=== PATIENT | female | born 1965 | race African-American/Black ===

== ENCOUNTER 2018-06-15 19:26 | Emergency (ER) | payer MEDICARE, MEDICAID ==
[2018-06-15] MEDS ORDERED: ASPIRIN 81 MG TABLET, CHEWABLE PO ONE (19:53)
--- NOTE | 2018-06-15 19:55 | ER Document Report ---
ED Medical Screen (RME) - General TRAVEL OUTSIDE OF THE [place] IN LAST 30 DAYS: No <ROMAN PEARCE - Last Filed: 06/15/18 19:54> <FIORELLA MORGAN - Last Filed: 06/16/18 01:56> - General Chief Complaint: High Blood Pressure Stated Complaint: BLOOD PRESSURE PROBLEM Time Seen by Provider: 06/15/18 19:49 Notes: 53 years old female with no previous history of hypertension, was having substernal chest pain, seen at an urgent care, blood pressure was reading around 190 systole. Therefore she was referred to the ED. By the time she came to the ED the pain has subsided. Pressure remains elevated. She denies any left arm numbness tingling sensation nausea vomiting palpitation or diaphoresis. She is pretty up diabetic but not taking any medications. She is a smoker. Denies any alcohol or drug abuse. (ROMAN PEAREC) - Related Data Allergies/Adverse Reactions: No Known Allergies Allergy (Unverified 12/12/12 19:31) Past Medical History - Past Medical History Cardiac Medical History: Denies: Hx Hypertension - denies hx of diagnosis of HTN --denies htn meds Pulmonary Medical History: Denies: Hx Tuberculosis Past Surgical History: Reports: Hx Section, Hx Cholecystectomy. Denies : Hx Pacemaker - Immunizations Hx Diphtheria, Pertussis, Tetanus Vaccination: Yes <ROMAN PEARCE - Last Filed: 06/15/18 19:54> - Vital signs Vitals: Temp Pulse Resp BP Pulse Ox 98.1 F 86 14 157/105 H 94 06/15/18 19:38 06/15/18 19:38 06/15/18 19:38 06/15/18 19:38 06/15/18 19:38 Course - Laboratory Result Diagrams: 06/15/18 20:33 06/15/18 20:33 <FIORELLA MORGAN - Last Filed: 06/16/18 01:56> - Vital Signs Vital signs: Temp Pulse Resp BP Pulse Ox 98.1 F 86 14 157/105 H 94 06/15/18 19:38 06/15/18 19:38 06/15/18 19:38 06/15/18 19:38 06/15/18 19:38 - Laboratory Laboratory results interpreted by me: 07/25/18 07/25/18 20:33 20:33 WBC 13.8 H RBC 5.48 H Hgb 16.3 H Hct 48.1 H Absolute Lymphocytes 5.3 H Potassium 3.5 L Glucose 149 H Doctor's Discharge <ROMAN PEARCE - Last Filed: 06/15/18 19:54> <FIORELLA MORGAN - Last Filed: 06/16/18 01:56> - Discharge Clinical Impression: Chest pain Qualifiers: Chest pain type: unspecified Qualified Code(s): R07.9 - Chest pain, unspecified Condition: Stable Disposition: HOME, SELF-CARE Additional Instructions: Chest Pain of Unclear Cause The exact cause of your chest pain isn't clear. Fortunately, there is no evidence of a dangerous medical condition. Further testing may be required to find the source of the pain. Most often, we find that this pain is coming from the chest wall -- the muscles or rib joints in the chest. But chest pain can come from the lung and lung lining, the esophagus, the heart valves or heart lining, and even the stomach or gallbladder. Rest. Eat lightly until the pain is gone. We may prescribe medicine for pain and inflammation. You should call the physician immediately if the pain radiates to the shoulder, jaw or arms; if you start to run a fever or develop a cough; or if you develop shortness of breath, or other new or alarming symptoms. Your cardiac workup today was normal. Please call Dr. Mccullough's office in the morning, to make an appointment for evaluation. You may need to have a stress test. Please return to the emergency department if you develop worsening symptoms we will be happy to reevaluate you. Referrals: MARLA SINGLETON MD [Primary Care Provider] - Follow up as needed
--- NOTE | 2018-06-15 20:34 | RADIOLOGY REPORT (SQ) ---
EXAM DESCRIPTION: CHEST SINGLE VIEW COMPLETED DATE/TIME: 06/15/2018 8:14 pm REASON FOR STUDY: Chest pain COMPARISON: None. EXAM PARAMETERS: NUMBER OF VIEWS: One view. TECHNIQUE: Single frontal radiographic view of the chest acquired. RADIATION DOSE: NA LIMITATIONS: None. FINDINGS: LUNGS AND PLEURA: No opacities, masses or pneumothorax. No pleural effusion. MEDIASTINUM AND HILAR STRUCTURES: No masses. Contour normal. HEART AND VASCULAR STRUCTURES: Heart normal in size. Normal vasculature. BONES: No acute findings. HARDWARE: None in the chest. OTHER: No other significant finding. IMPRESSION: NO ACUTE RADIOGRAPHIC FINDING IN THE CHEST. TECHNICAL DOCUMENTATION: JOB ID: [id number] [employer]- All Rights Reserved Reading location - IP/workstation name: [email or web address]
[2018-06-15 21:15] LABS: ABSOLUTE BASOPHILS # (AUTO) 0.1 10^3/uL (0.0-0.2); ABSOLUTE EOSINOPHILS # (AUTO) 0.4 10^3/uL (0.0-0.6); ABSOLUTE LYMPHOCYTES (AUTO) 5.3 10^3/uL (0.5-4.7); ABSOLUTE MONOCYTES (AUTO) 0.6 10^3/uL (0.1-1.4); ABSOLUTE NEUT (AUTO) 7.4 10^3/uL (1.7-8.2); BASOPHILS % (AUTO) 0.9 % (0-2); EOSINOPHILS % (AUTO) 3.2 % (0-6); HEMATOCRIT 48.1 % (36.0-47.0); HEMOGLOBIN 16.3 g/dL (12.0-15.5); LYMPHOCYTES % (AUTO) 38.5 % (13-45); MEAN CORPUSCULAR HEMOGLOBIN 29.8 pg (27.0-33.4); MEAN CORPUSCULAR VOLUME 88 fl (80-97); PLATELET COUNT 243 10^3/uL (150-450); RED BLOOD COUNT 5.48 10^6/uL (3.72-5.28); RED CELL DISTRIBUTION WIDTH 13.4 % (11.5-14.0); SEGMENTED NEUTROPHILS % (AUTO) 53.4 % (42-78); TOTAL CELLS COUNTED % (AUTO) 100 %; WHITE BLOOD COUNT 13.8 10^3/uL (4.0-10.5)
[2018-06-15 21:35] LABS: ALANINE AMINOTRANSFERASE 34 U/L (9-52); ALBUMIN 3.9 g/dL (3.5-5.0); ALKALINE PHOSPHATASE 89 U/L (38-126); ANION GAP 9 (5-19); ASPARTATE AMINO TRANSFERASE 30 U/L (14-36); BILIRUBIN,DIRECT 0.3 mg/dL (0.0-0.4); BILIRUBIN,TOTAL 0.4 mg/dL (0.2-1.3); BLOOD UREA NITROGEN 15 mg/dL (7-20); CALCIUM 8.6 mg/dL (8.4-10.2); CARBON DIOXIDE 24 mmol/L (22-30); CHLORIDE 106 mmol/L (98-107); CREATINE KINASE 108 U/L (30-135); GLUCOSE 149 mg/dL (75-110); POTASSIUM 3.5 mmol/L (3.6-5.0); SODIUM 139.1 mmol/L (137-145); TOTAL PROTEIN 7.9 g/dL (6.3-8.2)
[2018-06-15 21:43] LABS: CREATINE KINASE MB 1.01 ng/mL (<4.55)
[2018-06-15 21:44] LABS: TROPONIN I < 0.012 ng/mL
[2018-06-15] MEDS ORDERED: LIDOCAINE 2% VISCOUS SOLN 20 ML UDCUP PO ONE (23:02)
[2018-06-15] MEDS ORDERED: METOCLOPRAMIDE HCL ORAL SOLN 10 MG/10 ML UDCUP PO ONE (23:03)
[2018-06-15] MEDS ORDERED: MAG HYDROX/AL HYDROX/SIMETH SUSP 30 ML UDCUP PO ONE (23:03)
--- NOTE | 2018-06-15 23:05 | EKG REPORT ---
SEVERITY:- ABNORMAL ECG - SINUS RHYTHM LEFT VENTRICULAR HYPERTROPHY BORDERLINE PROLONGED QT INTERVAL : Confirmed by: Rafaela Tanner MD 15-Jun-2018 23:04:47
[2018-06-15] MEDS ORDERED: ASPIRIN 81 MG TABLET, CHEWABLE ONE (23:16)
[2018-06-16 02:16] VITALS: BP 164/95
== END 2018-06-16 02:16 | disposition home or self-care (01) ==
LOC: ER 19:26
DX: R07.89 Other chest pain (principal)
CPT/HCPCS: 93005; 99284; 36415; 82553; 82550; 85025; 80053; 84484; 71045; 93010; A9270 ×2; J3490